=== PATIENT | male | born 1960 | race Caucasian/White ===

== ENCOUNTER → 2016-12-29 | Outpatient (CLI) | payer OTHER ==
[~2016-12-29] MED LIST: ANTI-DIARRHEA2 MG PO; ASPIRIN325 MG PO; ASPIRIN81 M2 PO; ATENOLOL50 MG PO; CARVEDILOL3.125 MG PO; CO Q-10100 MG PO; FUROSEMIDE20 MG PO; FUROSEMIDE40 MG PO; LEVOCETIRIZINE D5 MG PO; LISINOPRIL-HCT1 EACH PO; LISINOPRIL20 MG PO; MONTELUKAST SOD10 MG PO; OMEPRAZOLE40 M1 PO; OXYBUTYNIN CHLO15 MG PO; PAROXETINE HCL10 MG PO; POTASSIUM CHLO10 ME4 PO; PREDNISONE10 MG PO; SUDAFED 12-HOU120 MG PO; SYMBICORT60 INHALAT IH; VENTOLIN HFA18 GM IH; VESICARE10 MG PO
== END | disposition home or self-care (01) ==
LOC: RAD 12:35
DX: R06.02 Shortness of breath (principal)
CPT/HCPCS: 71020

== ENCOUNTER 2016-12-31 02:00 | Inpatient (IN) | payer OTHER ==
[~2016-12-31] VITALS: Ht 172.7 cm; Wt 130.9 kg
[~2016-12-31 02:00] MED LIST changes: -ANTI-DIARRHEA2 MG PO; -CARVEDILOL3.125 MG PO; -CO Q-10100 MG PO; -FUROSEMIDE40 MG PO; -LEVOCETIRIZINE D5 MG PO; -LISINOPRIL20 MG PO; -MONTELUKAST SOD10 MG PO; -OMEPRAZOLE40 M1 PO; -OXYBUTYNIN CHLO15 MG PO; -PAROXETINE HCL10 MG PO; -PREDNISONE10 MG PO
[2016-12-31 02:33] LABS: EOSINOPHIL (%) 0 % (0-5); HEMATOCRIT 41.1 % (38.0-50.0); IMMATURE GRANULOCYTE (%) 0.3 % (0.0-0.7); INSTRUMENT ABS NEUTROPHIL CT 8.9 K/uL; LYMPHOCYTE COUNT 1.1 K/uL (1.0-2.8); MCH 28.1 PG (29.0-34.0); MCHC 32.1 G/DL (30.0-36.0); MCV 87.4 FL (86-99); MEAN PLAT.VOLUME 10.6 uM^3 (9.0-12.4); MONOCYTE (%) 3.5 % (3-12); MONOCYTE COUNT 0.4 K/uL (0-0.8); NEUTROPHIL (%) 85.2 % (45-76); NEUTROPHIL COUNT 8.9 K/uL (1.8-6.4); PLATELET COUNT 236 K/uL (156-360); RBC DIS.WIDTH-CV 12.9 % (11.8-14.6); RBC DIS.WIDTH-SD 41.1 % (39-53); WHITE BLOOD COUNT 10.5 K/uL (4.1-10.2)
[2016-12-31 02:45] LABS: CHLORIDE 108 mEq/L (99-109); POTASSIUM 4.6 mEq/L (3.7-5.4); SODIUM 141 mEq/L (136-147)
[2016-12-31 02:46] LABS: GLUCOSE 132 mg/dL (70-99)
[2016-12-31 02:48] LABS: ANION GAP 9 MEQ/L (2-14)
[2016-12-31 02:50] LABS: GFR ESTIMATE (CALCULATED) > 59 mL/min/
[2016-12-31 02:51] LABS: UREA NITROGEN (BUN) 27 mg/dL (9-23)
[2016-12-31 02:54] LABS: TROP-I INTERPRETATION NEGATIVE; TROPONIN-I 0.06 ng/mL (0.0-0.30)
[2016-12-31] MEDS ORDERED: MONTELUKAST SOD10 MG PO (04:57)
[2016-12-31] MEDS ORDERED: LISINOPRIL20 MG PO (04:58)
[2016-12-31] MEDS ORDERED: FUROSEMIDE20 MG PO (04:58)
[2016-12-31] MEDS ORDERED: LEVOCETIRIZINE D5 MG PO (04:58)
[2016-12-31] MEDS ORDERED: OXYBUTYNIN CHLO15 MG PO (04:59)
[2016-12-31] MEDS ORDERED: PREDNISONE10 MG PO (04:59)
[2016-12-31] MEDS ORDERED: OMEPRAZOLE40 M1 PO (04:59)
[2016-12-31] MEDS ORDERED: PAROXETINE HCL10 MG PO (05:00)
[2016-12-31] MEDS ORDERED: ASPIRIN325 MG PO (05:00)
[2016-12-31 08:15] VITALS: BP 151/93
[2016-12-31] MEDS ORDERED: SUDAFED 12-HOU120 MG PO (09:25)
[2016-12-31] MEDS ORDERED: ANTI-DIARRHEA2 MG PO (09:26)
[2016-12-31] MEDS ORDERED: CO Q-10100 MG PO (09:27)
[2016-12-31 15:51] VITALS: BP 128/90
[2016-12-31 20:44] VITALS: BP 140/93
[2016-12-31 23:50] VITALS: BP 121/77
[2017-01-01 04:03] VITALS: BP 140/94
[2017-01-01 06:25] LABS: Estimated Average Glucose 123 mg/dL (70-123); HEMOGLOBIN A1c (GLYCOHEMOGLOB) 5.9 % HGB (Below 5.7)
[2017-01-01 06:36] LABS: ANION GAP 9 MEQ/L (2-14); CHLORIDE 102 MEQ/L (99-109); GFR ESTIMATE (CALCULATED) 51 mL/min/; GLUCOSE 95 mg/dL (70-99); HDL CHOLESTEROL 31 MG/DL (Desirable>=40); LDL CHOLESTEROL 96 mg/dL (Desirable<100); MAGNESIUM 2.2 mg/dl (1.3-2.7); NON-HDL CHOLESTEROL 125 mg/dL (Desirable<160); POTASSIUM 4.3 MEQ/L (3.7-5.4); SAMPLE HEMOLYSIS CHECK 0; SAMPLE ICTERIC CHECK 0; SAMPLE LIPEMIA CHECK 0; SODIUM 142 MEQ/L (136-147); TOTAL CHOLESTEROL 156 mg/dL (Desirable<200); TRIGLYCERIDES 143 MG/DL (Normal: <150); UREA NITROGEN (BUN) 31 mg/dL (9-23)
[2017-01-01 07:40] VITALS: BP 133/80
[2017-01-01] MEDS ORDERED: CARVEDILOL3.125 MG PO (10:03)
[2017-01-01] MEDS ORDERED: FUROSEMIDE40 MG PO (10:03)
[2017-01-01 11:18] VITALS: BP 138/94
== END 2017-01-01 12:36 | disposition home or self-care (01) | DRG 291 ==
LOC: EME → EDBD 02:00 → 5SOUTH 04:16 → EDOF 04:16 → ENRESERV 04:21 → 5SOUTH 07:04
PROVIDERS: Emergency Medicine; Physician Assistant Medical
DX: I11.0 Hypertensive heart disease with heart failure (principal); I50.23 Acute on chronic systolic (congestive) heart failure; J44.0 Chronic obstructive pulmonary disease with (acute) lower respiratory infection; J18.9 Pneumonia, unspecified organism; N17.9 Acute kidney failure, unspecified; I42.0 Dilated cardiomyopathy; R73.9 Hyperglycemia, unspecified; T38.0X5A Adverse effect of glucocorticoids and synthetic analogues, initial encounter; E78.5 Hyperlipidemia, unspecified; G47.33 Obstructive sleep apnea (adult) (pediatric); F17.200 Nicotine dependence, unspecified, uncomplicated; I25.10 Atherosclerotic heart disease of native coronary artery without angina pectoris; E66.01 Morbid (severe) obesity due to excess calories; Z79.82 Long term (current) use of aspirin; Z68.41 Body mass index [BMI] 40.0-44.9, adult; Z88.0 Allergy status to penicillin; Z91.14 Patient's other noncompliance with medication regimen
CPT/HCPCS: 71010; 71020; 80048; 80061; 83036; 83605; 83735; 83880; 84484; 85025; 87040; 93005; 93306; 93971; 94640; 94640 76; 99202; 99281; 99284; J1650; J1940; J1956

== ENCOUNTER 2017-01-01 15:30 | Emergency (ER) | payer OTHER ==
[~2017-01-01] VITALS: Ht 172.7 cm; Wt 133.3 kg
[~2017-01-01 15:30] MED LIST changes: +ANTI-DIARRHEA2 MG PO; +CARVEDILOL3.125 MG PO; +CO Q-10100 MG PO; +FUROSEMIDE40 MG PO; +LEVOCETIRIZINE D5 MG PO; +LISINOPRIL20 MG PO; +MONTELUKAST SOD10 MG PO; +OMEPRAZOLE40 M1 PO; +OXYBUTYNIN CHLO15 MG PO; +PAROXETINE HCL10 MG PO; +PREDNISONE10 MG PO
[2017-01-01 16:44] LABS: BASOPHIL COUNT 0.1 K/uL (0-0.1); EOSINOPHIL (%) 1.5 % (0-5); EOSINOPHIL COUNT 0.2 K/uL (0-0.3); HEMATOCRIT 43.2 % (38.0-50.0); IMMATURE GRANULOCYTE (%) 0.2 % (0.0-0.7); INSTRUMENT ABS NEUTROPHIL CT 7.3 K/uL; LYMPHOCYTE COUNT 1.9 K/uL (1.0-2.8); MCHC 32.2 G/DL (30.0-36.0); MCV 86.9 FL (86-99); MEAN PLAT.VOLUME 10.5 uM^3 (9.0-12.4); MONOCYTE (%) 6.8 % (3-12); MONOCYTE COUNT 0.7 K/uL (0-0.8); NEUTROPHIL (%) 72.3 % (45-76); NEUTROPHIL COUNT 7.3 K/uL (1.8-6.4); PLATELET COUNT 260 K/uL (156-360); RBC DIS.WIDTH-SD 40.5 % (39-53); RED BLOOD COUNT 4.97 M/uL (4.00-5.50); WHITE BLOOD COUNT 10.1 K/uL (4.1-10.2)
[2017-01-01 16:54] LABS: CHLORIDE 104 mEq/L (99-109); SODIUM 140 mEq/L (136-147)
[2017-01-01 16:55] LABS: GLUCOSE 104 mg/dL (70-99)
[2017-01-01 16:57] LABS: ANION GAP 10 MEQ/L (2-14)
[2017-01-01 16:59] LABS: GFR ESTIMATE (CALCULATED) 56 mL/min/
[2017-01-01 17:00] LABS: UREA NITROGEN (BUN) 31 mg/dL (9-23)
[2017-01-01 17:01] LABS: D-DIMER ELISA < 150.00 ng/mLDDU (<230)
[2017-01-01 17:25] LABS: TROP-I INTERPRETATION NEGATIVE; TROPONIN-I 0.05 ng/mL (0.0-0.30)
[2017-01-01 18:05] VITALS: BP 151/71
== END 2017-01-01 18:21 | disposition home or self-care (01) ==
LOC: EME 15:30
PROVIDERS: Emergency Medicine
DX: R07.9 Chest pain, unspecified (principal); I11.0 Hypertensive heart disease with heart failure; I50.9 Heart failure, unspecified; Z87.891 Personal history of nicotine dependence; Z88.0 Allergy status to penicillin
CPT/HCPCS: 71020; 80048 91; 83880; 84484; 85025; 85379; 93005; 99281; 99284